=== PATIENT | male | born 1980 | race Caucasian/White ===

== ENCOUNTER 2019-03-29 07:49 | Observation (INO) | payer BC ==
[2019-03-29 10:03] VITALS: BMI 33.8
[2019-03-29] MEDS ORDERED: Dexamethasone 20 MG/5 ML VIAL ONE (10:32)
[2019-03-29] MEDS ORDERED: PROPOFOL 200 MG/20 ML VIAL ONE (10:32)
[2019-03-29] MEDS ORDERED: Lidocaine 1% PF 5 ML VIAL ONE (10:32)
[2019-03-29] MEDS ORDERED: Ondansetron PF 4 MG/2 ML Vial ONE (10:32)
[2019-03-29] MEDS ORDERED: Morphine 4 MG/ML VIAL SLOW IVP PRN (11:00)
[2019-03-29] MEDS ORDERED: cefTRIAXone Sodium 1,000 MG in Syringe 0 ML IVPB SCH (11:00)
[2019-03-29] MEDS ORDERED: hydrALAZINE 20 MG/ML VIAL SLOW IVP PRN (11:07)
[2019-03-29] MEDS ORDERED: diphenhydrAMINE 25 MG CAP PO PRN (11:07)
[2019-03-29] MEDS ORDERED: ACETAMINOPHEN PO PRN (11:07)
[2019-03-29] MEDS ORDERED: Oxybutynin 5 MG TAB PO PRN (11:07)
[2019-03-29] MEDS ORDERED: Ondansetron PF 4 MG/2 ML Vial IVP PRN (11:07)
[2019-03-29] MEDS ORDERED: [UNRECOGNIZED DRUG - OTHER] PO PRN (11:07)
[2019-03-29] MEDS ORDERED: Phenazopyridine HCl 97.5 MG TABLET PO PRN (11:07)
[2019-03-29] MEDS ORDERED: Mag-Al 1200 mg/1200 mg/30 ML UDCUP PO PRN (11:07)
[2019-03-29] MEDS ORDERED: Sodium Chloride 0.9% 1,000 ML IV SCH (11:07)
[2019-03-29] MEDS ORDERED: OXYCODONE HCL PO PRN (11:07)
[2019-03-29] MEDS ORDERED: oxyCODONE/Acetaminophen 5 mg/325 mg Tablet PO PRN (11:22)
[2019-03-29] MEDS: Morphine 4 MG/ML VIAL SLOW IVP PRN ×2 (11:43→15:28)
[2019-03-29] MEDS ORDERED: cefTRIAXone\\ROCEPHIN 1 GM in Sodium Chloride 0.9% 100 ML IVPB SCH (11:45)
[2019-03-29] MEDS ORDERED: cloNIDine 0.3mg/24 Hour PATCH TD SCH (12:00)
[2019-03-29] MEDS ORDERED: Sodium Chloride 0.9% 10 ML ONE (12:18)
[2019-03-29] MEDS ORDERED: Fentanyl 100 MCG/2 ML VIAL ONE ×2 (12:43→12:48)
[2019-03-29] MEDS ORDERED: HYDROmorphone 0.5 MG/0.5 ML SYRINGE ONE (12:43)
[2019-03-29] MEDS ORDERED: Midazolam HCl 2 mg/2 ml Vial ONE (12:43)
[2019-03-29] MEDS ORDERED: Iothalamate Meglumine 60% 50 ML VIAL FS ONE (12:50)
[2019-03-29] MEDS ORDERED: cefTRIAXone\\ROCEPHIN 1 GM VIAL ONE (12:52)
[2019-03-29] MEDS ORDERED: Sodium Chloride 0.9% 100 ML ONE (12:52)
--- NOTE | 2019-03-29 13:39 | HP ---
REASON FOR ADMISSION: Bilateral ureteral obstruction secondary to kidney stones. CHIEF COMPLAINT: "I have the stones and I'm hurting." HISTORY OF PRESENT ILLNESS: Mr. Contreras is a 38-year-old white male with a history of nephrolithiasis, but no previous urologic surgeries, who presented to the emergency room with complaints of malaise and flank pain, more so on the right. He has been having back and flank pain for the past several days, which acutely worsened to the point where he was extremely uncomfortable and could no longer tolerate the pain. The pain became 9/10 primarily on the left, sharp in nature and radiating to the genitalia. He went to [facility] ER where he underwent a CT scan demonstrating bilateral ureteral stones measuring 16 mm on the right and 8 mm on the left. I was contacted for direct admission from [facility] and he has now been admitted to the hospital. On my discussion with the patient, he states he has passed several kidney stones about every 2 years for the past several years , but he has not required any surgical intervention. He normally urinates without any difficulty. Currently he is having urgency and frequency but denies dysuria or gross hematuria. He has not had hematuria in the past. He denies any history of urinary tract infections. PAST MEDICAL HISTORY: 1. Cervical neck pain. 2. Nephrolithiasis. 3. Poorly controlled hypertension. 4. ADHD. PAST SURGICAL HISTORY: Left finger amputation and reconstruction. HOME MEDICATIONS: 1. Adderall 30 mg p.o. daily. 2. Clonidine patch 0.3 mg to skin every 7 days. 3. Percocet 10/325 mg p.o. q.12 hours p.r.n. pain. 4. Lisinopril 10 mg p.o. daily. ALLERGIES: NONE. FAMILY HISTORY: Noncontributory for nephrolithiasis or kidney disease or BPH. SOCIAL HISTORY: Patient does smoke cigarettes. He denies alcohol abuse or illicit drug use. REVIEW OF SYSTEMS: A 12-point review of system was negative other than what was commented on the HPI. Specifically, he denies nausea, vomiting, or fevers. PHYSICAL EXAMINATION: VITAL SIGNS: Temperature 98.1, pulse 80, respirations 18, blood pressure 174/ 114, saturation 95% on room air. GENERAL: No apparent distress, communicative and alert, answering questions appropriately. Well nourished, well developed, appears stated age. HEENT: Normocephalic, atraumatic. Pupils are symmetric and round. Trachea midline. CARDIOVASCULAR: Regular rate and rhythm. Normal S1, S2. Symmetric pulses. CHEST: No increased work of breathing, symmetric expansion. LUNGS: Clear anteriorly. ABDOMEN: Soft, mildly tender to palpation bilaterally. No rebound, guarding, or tenderness. Mild bilateral CVA tenderness. No suprapubic pain. No hernias or organomegaly. GENITOURINARY: Deferred at this time. EXTREMITIES: No clubbing, cyanosis, or edema. MUSCULOSKELETAL: No obvious joint deformity or joint erythema noted. The left index finger digit is amputated at the distal phalanx and completely healed without any evidence of infection. SKIN: Warm, dry, no rashes or lesions. Good turgor. NEUROLOGIC: Cranial nerves 2 through 12 grossly intact. No focal or sensory motor deficits identified. LYMPHATICS: No obvious lymphadenopathy in the cervical, axillary, or inguinal areas. PSYCHIATRIC: Alert and oriented x3. Appropriate mood and affect. LABORATORY EVALUATION: No labs were taken at the hospital but from the ER, UA did demonstrate small leukocyte esterase, nitrite negative urine with large blood. Creatinine is 1.3. White blood cell count is 17,6000. CT from [facility] which is included on a CD disk demonstrates a 16 mm mid right ureteral stone with hydronephrosis and hydroureter along with a left distal 8 mm stone with hydronephrosis and hydroureter. There were no other significant abnormalities identified. ASSESSMENT AND PLAN: A 38-year-old white male with bilateral ureteral obstruction secondary to bilateral ureteral calculi with evidence of leukocytosis and mild acute kidney injury. Given the nature of the elevation in white count along with the elevation in creatinine, I would not recommend outpatient or medical expulsive therapy. The patient should undergo bilateral ureteral stents in the setting. Since we do not have a urine culture, I would not recommend ureteroscopy at this time. I have discussed ureteral stenting with the patient and allow reduction of the white count as well as improvement of his kidney function after which time we can plan for a ureteroscopy pending a negative urine culture. I would plan for bilateral ureteroscopy and removal of both stones at the same time. I discussed stenting currently along with the need for postoperative stents after the ureteroscopy. The risks and benefits of both surgeries were discussed including the cystoscopy and stent placement which we can do today along with ureteroscopy which we can do in approximately 1 to 2 weeks. Risks include, but are not limited to, bleeding, infection, damage to the ureter, kidneys, bladder, ureteral orifices, ureteral stricturing, ureteral perforation requiring prolonged stenting, inability to pass the stent, need for nephrostomy tube or other urologic surgeries, incomplete stone removal and damage to the urethra. The patient understands these risks and states he is willing to proceed forward with cystoscopy and stent placement today with ureteroscopy in the future. The patient will be kept n.p.o. currently with pain medication ordered. He should be able to be discharged after surgery. We will keep SCDs on-call to the OR as well as antibiotics on-call to the OR as well. I also discussed need for follow up. Patient must have follow up with urology for stent removal or may risk severe complications such as stent encrustation, large stone development, and renal loss. Job ID: [id number] MTDD
--- NOTE | 2019-03-29 14:27 | OP ---
DATE OF PROCEDURE: 03/29/2019 SERVICE: Urology. PREOPERATIVE DIAGNOSIS: Bilateral ureteral stones. POSTOPERATIVE DIAGNOSIS: Bilateral ureteral stones. PROCEDURES PERFORMED: Cystoscopy with bilateral ureteral stents placement, both 6 x 26 double-J stent. INDICATIONS FOR PROCEDURE: Mr. Contreras is a 38-year-old white male, who presented to the ER with flank and abdominal pain. He was found to have bilateral ureteral stones with a creatinine of 1.3 and white count of 17,000. We elected to go for bilateral ureteral stents placement to alleviate possible acute renal failure. Risks and benefits have been discussed and he has agreed to proceed forward. DESCRIPTION OF PROCEDURE: After identification of armband and verification of consent, the patient was brought back to the operating room where he underwent general anesthesia with an LMA. He was then placed in dorsal lithotomy position and prepped and draped in usual sterile fashion. After appropriate time-out, a lubricated 22-Setswana rigid cystoscope was introduced per urethra into the bladder. Attention was turned to the left ureteral orifice, which was cannulated with a 0.035 Sensor wire up to the level of renal pelvis. A 6 x 26 double-J stent was advanced over the Sensor wire up to the level of renal pelvis. There was some difficulty in manipulating the stent up to this level as the stone was fairly obstructive, but the stent was able to be ultimately passed cephalad up to the kidney. The wire was then removed leaving a good curl in the kidney and a good curl in the bladder. The same procedure was then repeated on the right with a Sensor wire being advanced to the kidney and a 6 x 26 double-J stent advanced on that side up to the level of the kidney. The wire was removed, leaving a good curl in the kidney, and a good curl in the bladder. The bladder was then emptied. The cystoscope was removed. The patient was then awakened and taken to PACU for recovery in stable condition. Of note, both stones were radiopaque on fluoroscopy. COMPLICATIONS: None. ESTIMATED BLOOD LOSS: Minimal. RETAINED TUBES AND DRAINS: Bilateral 6 x 26 double-J stents. SPECIMENS: None. DISPOSITION: The patient will be discharged home and he can follow up with me in approximately 2 weeks for definitive ureteroscopy. Alternatively, given the patient is from [place], he can also elect to follow up with the urologist in [place] who can perform his surgery there. Job ID: [id number]
--- NOTE | 2019-03-29 14:40 | DIS ---
DATE OF ADMISSION: 03/29/2019 DATE OF DISCHARGE: 03/29/2019 ADMITTING ATTENDING: Jose Manuel Murillo MD DISCHARGE ATTENDING: Jose Manuel Murillo MD ADMITTING DIAGNOSIS: Bilateral ureteral calculi with acute kidney injury. DISCHARGE DIAGNOSIS: Bilateral ureteral calculi with acute kidney injury. PROCEDURE PERFORMED: Cystoscopy with bilateral ureteral stents placement. BRIEF HISTORY: Mr. Contreras is a 38-year-old white male, who presented with abdominal and flank pain radiating to his groin. He had a CT done, which demonstrated bilateral ureteral calculi. He was admitted from [facility] directly to [facility] to undergo stent placement. The full H and P can be found in the dictated portion of the [facility] system. HOSPITAL COURSE: The patient was kept in the hospital with pain control. In the morning, he underwent cystoscopy with bilateral ureteral stents placements. Postop, he was discharged home. DISPOSITION: Discharged to home. DISCHARGE CONDITION: Good. DISCHARGE MEDICATIONS: The patient will continue on his home Percocet for pain control. In addition, he also will be started on oxybutynin 5 mg p.o. t.i.d. p.r.n. bladder spasms and Pyridium 200 mg p.o. t.i.d. p.r.n. dysuria. He is advised to perform light activities only without any strenuous lifting or heavy activity, which would cause stent irritation, some hematuria is expected. He should notify me for severe uncontrolled pain, nausea, vomiting, or fevers. It was also explicitly stated to the patient that he must follow up with urologist either in [place] or here locally or any other urologist of his choosing to ensure that he gets his stones treated and his stents removed in a timely fashion. The maximum duration of the stent is 3 months before risk of complications such as stent encrustation, stone development, stricture formation, severe infections, and even renal loss can occur in patients who have retained indwelling stents that do not have appropriate followup care. He states he will keep followup care and understands the risks if he does not. The patient is then discharged without any further problems. All of his questions were answered. Job ID: [id number]
[2019-03-29 15:13] VITALS: BP 161/97; TEMP 98
[2019-03-29] MEDS ORDERED: Docusate 100 MG CAP PO SCH (21:00)
[2019-03-30] MEDS ORDERED: Lisinopril 10 MG TAB PO SCH (09:00)
[2019-04-01] MEDS ORDERED: cloNIDine 0.3mg/24 Hour PATCH TD SCH (09:00)
== END 2019-03-29 17:04 | disposition home or self-care (01) ==
LOC: INTOOBSV 07:49 → T4-B 07:49
PROVIDERS: ADMIT Urology; ATTEND Urology
PROC: 0T788DZ Dilation of Bilateral Ureters with Intraluminal Device, Via Natural or Artificial Opening Endoscopic (ICD-10-PCS; principal; 2019-03-29)
DX: N20.1 Calculus of ureter (principal); N17.9 Acute kidney failure, unspecified; I10 Essential (primary) hypertension; F90.9 Attention-deficit hyperactivity disorder, unspecified type; F17.210 Nicotine dependence, cigarettes, uncomplicated; Z79.899 Other long term (current) drug therapy
CPT/HCPCS: 76000; 96374; 96376; C1758; C1769; G0378; J0696; J1100; J1170; J2001; J2250; J2270; J2405; J2704; J3010; J3490

== ENCOUNTER 2019-05-01 09:10 | Outpatient (CLI) | payer BC ==
[2019-05-01 16:16] LABS: Hemoglobin 14.2 g/dL (14.0-18.0); Mean Corpuscular HGB CONC 34.3 g/dL (32.0-36.0); Mean Corpuscular Volume 93.3 fL (78.0-98.0); Mean Platelet Volume 6.4 fL (7.4-10.4); Platelet Count 352 thou/uL (130-400); RBC Distribution Width 11.8 % (11.5-14.5); Red Blood Cell (RBC) Count 4.44 mill/uL (4.70-6.10); White Blood Cell (WBC) Count 11.4 thou/uL (4.8-10.8)
[2019-05-01 16:22] LABS: INR-International Normal Ratio 0.9; Prothrombin Time 12.2 SEC (12.0-14.7)
[2019-05-01 16:23] LABS: PTT 53.5 SEC (22.9-36.1)
[2019-05-01 16:28] LABS: Bilirubin Negative (Negative); Blood, Urine 3+ (Negative); Clarity Turbid (Clear); Glucose, Urine (Dipstick) Normal (Negative); Leukocyte 250 Leu/uL (Negative); Nitrite Negative (Negative); Protein, Urine (Dipstick) 300 mg/dL (Neg-Trace); RBC/HPF 21-50 HPF (0-3); Squamous Epithelial None Seen HPF (0-3); Urobilinogen Normal mg/dL (Less than 2); WBC/HPF 0-3 HPF (0-3)
[2019-05-01 16:34] LABS: Bacteria/HPF 1+ HPF (None Seen)
[2019-05-01 16:35] LABS: Anion Gap 11 mmol/L (10-20); BUN (Urea Nitrogen) 15 mg/dL (8.9-20.6); Calc. Creatinine Clearance 0 mL/min (70-130); Calcium 8.9 mg/dL (7.8-10.44); Carbon Dioxide 27 mmol/L (22-29); Chloride 104 mmol/L (98-107); Estimated GFR-MDRD 66; Glucose 96 mg/dL (70-105); Potassium 4.1 mmol/L (3.5-5.1); Sodium 138 mmol/L (136-145)
--- NOTE | 2019-05-02 16:27 | EKG ---
Test Reason : Blood Pressure : / mmHG Vent. Rate : 084 BPM Atrial Rate : 084 BPM P-R Int : 144 ms QRS Dur : 090 ms QT Int : 374 ms P-R-T Axes : 057 -06 003 degrees QTc Int : 441 ms Normal sinus rhythm Normal ECG No previous ECGs available Confirmed by DR. Jonel THOMAS ([id number]) on 05/02/2019 4:27:32 PM Referred By: JESUSITA Confirmed By:DR. Jonel THOMAS
== END 2019-05-01 09:11 | disposition home or self-care (01) ==
LOC: LABBT 09:10
PROVIDERS: ATTEND Urology
DX: Z01.818 Encounter for other preprocedural examination (principal); N20.1 Calculus of ureter
CPT/HCPCS: 80048; 81001; 85027; 85610; 85730; 87086; 93005; 93010

== ENCOUNTER 2019-05-08 07:18 | Day surgery (SDC) | payer BC ==
[2019-05-01 15:29] VITALS: BMI 33.5
[2019-05-08] MEDS ORDERED: Levofloxacin 500 mg/D5W 100 ml Premix Bag ONE (08:18)
[2019-05-08] MEDS ORDERED: Labetalol HCl 100 MG/20 ML VIAL ONE (08:44)
[2019-05-08] MEDS ORDERED: Ketorolac Tromethamine 30 MG/ML VIAL ONE (09:06)
[2019-05-08] MEDS ORDERED: PROPOFOL 200 MG/20 ML VIAL ONE (09:06)
[2019-05-08] MEDS ORDERED: Lidocaine 1% PF 5 ML VIAL ONE (09:06)
[2019-05-08] MEDS ORDERED: Ondansetron PF 4 MG/2 ML Vial ONE (09:06)
[2019-05-08] MEDS ORDERED: Fentanyl 100 MCG/2 ML VIAL ONE (10:00)
[2019-05-08] MEDS ORDERED: Midazolam HCl 2 mg/2 ml Vial ONE (10:00)
[2019-05-08] MEDS ORDERED: B & O ONE (10:11)
[2019-05-08] MEDS ORDERED: Iothalamate Meglumine 60% 50 ML VIAL FS ONE (10:11)
[2019-05-08] MEDS ORDERED: HYDROcodone/Acetaminophen 5/325 mg Tablet ONE (13:16)
--- NOTE | 2019-05-08 13:20 | OP ---
DATE OF PROCEDURE: 05/08/2019 SERVICE: Urology. PREOPERATIVE DIAGNOSIS: Bilateral ureteral stones. POSTOPERATIVE DIAGNOSIS: Bilateral ureteral stone. PROCEDURES PERFORMED: 1. Bilateral ureteroscopy. 2. Laser lithotripsy. 3. Basket extraction of stones. 4. Placement of 6 x 26 double-J stents bilaterally with both strings attached. INDICATIONS FOR PROCEDURE: Mr. Contreras is a 38-year-old white male, who had presented to me originally from the ER with bilateral ureteral stones and acute kidney injury. He underwent bilateral ureteral stenting at that time and was discharged home. He is now following up for definitive stone management. All risks and benefits have been discussed and he has agreed to proceed forward. DESCRIPTION OF PROCEDURE: After identification of armband and verification of consent, the patient was brought back to the operating room, where he underwent general anesthesia with an LMA. He was then placed in the dorsal lithotomy position, prepped and draped in usual sterile fashion. After appropriate time-out, a lubricated 22-Martiniquais rigid cystoscope was introduced per urethra into the bladder. Both stents were in place. The right stent was grasped with flexible graspers and removed in its entirety as it was too tight to allow for passage of the wire. The cystoscope was then introduced back into the urethra into the bladder and the Sensor wire was passed through the right ureteral orifice alongside the stone up into the renal pelvis. The cystoscope was then removed. An attempt to go up with a semi-rigid ureteroscope were unsuccessful. Therefore, a Super Stiff wire was placed through the ureteroscope up to the level of the stone and then the ureteroscope removed. An 11/13 x 28 cm ureteral access sheath was advanced over the Super Stiff wire up to the level of the stone, and then the inner cannula and wire were removed, leaving the outer sheath and Sensor wire in place as a safety wire. A flexible digital ureteroscope was then used to pass up to the stone and a 270 micron ball-tip laser fiber was used to fragment the stone into smaller pieces. A 1.9-Martiniquais ZeroTip Nitinol basket was then used to extract all fragments, which were over 2 mm in size. Upon completion, the only thing left were stone debris. There were no actual stone fragments seen. Ureteroscopy was carried out all the way up to the renal pelvis, where no additional stones were encountered. Pull-back ureteroscopy was employed. No additional stones were found within the ureter. The cystoscope was then back-loaded over the Sensor wire back into the bladder and a 6 x 26 double-J stent was advanced over the Sensor wire in the right side up to the level of renal pelvis with the wire was removed, leaving a good curl in the kidney and a good curl in the bladder. The string was left attached and the bladder was drained. Then, the grasper was used to grasp the stent on the left and bring it out in entirety. The cystoscope was then reintroduced back into the bladder and a Sensor wire was advanced up the left ureter up to the level of renal pelvis. The cystoscope was removed and a semi-rigid ureteroscope was brought in alongside the Sensor wire into the distal ureter, where the stone was encountered on the left. Using the same ball-tip laser fiber, the stone was fragmented into smaller pieces and the 1.9-Martiniquais ZeroTip Nitinol basket was used to extract the fragments. Ureteroscopy was then carried out up to the level of the mid ureter, where no additional stone fragments were seen, satisfied that the stone was removed on this side. The ureteroscope was then withdrawn and removed. A cystoscope was then back-loaded over the Sensor wire back into the bladder and a 6 x 26 double-J stent was advanced over this side up to the level of renal pelvis with the wire was removed, leaving a good curl in the kidney and good curl in the bladder. The bladder was then drained and cystoscope removed, leaving both stents in place with strings attached to each one. These were then secured to the patient's penis with a Tegaderm. The patient had B and O suppository placed. He was then taken out of positioning, awakened, taken to PACU for recovery in stable condition. COMPLICATIONS: None. ESTIMATED BLOOD LOSS: Minimal. RETAINED TUBES AND DRAINS: A 6 x 26 double-J stents bilaterally. SPECIMENS: Stone for stone analysis. DISPOSITION: The patient will be discharged home and follow up with me in approximately 6 weeks with a renal ultrasound. He will be instructed to remove his stent in approximately 10 days. Job ID: [id number]
== END 2019-05-08 14:12 | disposition home or self-care (01) ==
LOC: SDC 07:18
PROVIDERS: ATTEND Urology
PROC: 0TF78ZZ Fragmentation in Left Ureter, Via Natural or Artificial Opening Endoscopic (ICD-10-PCS; principal; 2019-05-08)
PROC: 0T788DZ Dilation of Bilateral Ureters with Intraluminal Device, Via Natural or Artificial Opening Endoscopic (ICD-10-PCS; principal; 2019-05-08)
PROC: 0TF68ZZ Fragmentation in Right Ureter, Via Natural or Artificial Opening Endoscopic (ICD-10-PCS; principal; 2019-05-08)
DX: N20.1 Calculus of ureter (principal); I10 Essential (primary) hypertension; Z79.899 Other long term (current) drug therapy
CPT/HCPCS: 76000; 82365; 88300; C1758; C1769; J1885; J1956; J2001; J2250; J2405; J2704; J3010